=== PATIENT | female | born 1995 | race American Indian/Alaskan Native ===

== ENCOUNTER 2018-05-15 14:22 | Emergency (ER) | payer MEDICAID ==
[2018-05-15 14:43] VITALS: BP 122/78
[2018-05-15] MEDS ORDERED: PEPCID IV ONE (15:28)
[2018-05-15] MEDS ORDERED: TYLENOL PO ONE (15:28)
[2018-05-15] MEDS ORDERED: REGLAN IV ONE (15:28)
[2018-05-15] MEDS ORDERED: NACL 0.9% 1000 ML 1,000 ML IV ONE (15:28)
--- NOTE | 2018-05-15 15:30 | Emergency Department Report ---
Blank Doc - Documentation Documentation: Patient is a 23-year-old female who is approximately 9 weeks confirmed with ultrasound done approximately a week ago at [facility] who is complaining of nausea vomiting and epigastric discomfort. Patient recently was diagnosed also with a urinary tract infections and has approximately 4 pills left of Macrobid. Patient is had some lower abdominal crampiness at the time she was diagnosed with the UTI but now has epigastric discomfort. Patient states she is unable to keep anything down today and has some associated dizziness upon standing. Patient on focused physical exam does have some mild tenderness in epigastrium. Patient states she is not bleeding vaginally at this time. Patient will be moved to treatment room for IV fluids. We'll also check a urinalysis to ensure that the UTI has resolved and the patient will be given meds for symptomatic relief
[2018-05-15 16:03] LABS: Bilirubin,Urine NEG (Negative); Blood,Urine NEG (Negative); Mucus,Urine 1+ /HPF
[2018-05-15 16:04] LABS: Color,Urine Yellow (Yellow)
--- NOTE | 2018-05-15 16:04 | Emergency Department Report ---
Vomiting/Diarrhea - HPI Chief Complaint: Abdominal Pain Stated Complaint: 2MOS /STOMACH PAIN Time Seen by Provider: 05/15/18 15:24 Duration: Today Severity: moderate Nausea/Vomiting Severity: Moderate Diarrhea Severity: None Pain Location: Generalized Pain Severity: Moderate Symptoms: No Watery Diarrhea, No Bloody diarrhea, No Fever, No Able to Tolerate Fluids, No Recent Unusual Foods, No Recent Untreated Water, No Recent use of Antibiotics, No Family w/ Similar Symptoms, No Contacts w/ Similar Symptoms, No Rash, No Hematuria, No Recent URI Symptoms Other History: This is a 23-year-old female who presents with abdominal cramping and nausea since 0700 this morning. 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 She is also complaining of epigastric discomfort. She is currently taking macrobid for a urinary tract infection and has approximately 5 pills left. Patient is A0, LMP 03/14/2018. Patient states she is unable to keep anything down today. She denies vaginal bleeding or discharge, frequency, urgency, or dysuria. ED Review of Systems ROS: Stated complaint: 2MOS /STOMACH PAIN Other details as noted in HPI Constitutional: denies: chills, fever Respiratory: denies: cough, shortness of breath, wheezing Cardiovascular: denies: chest pain, palpitations Gastrointestinal: abdominal pain (difuse abdominal cramping), nausea, vomiting. denies: diarrhea Genitourinary: denies: urgency, dysuria, discharge Musculoskeletal: denies: back pain, joint swelling, arthralgia Neurological: denies: headache, weakness, paresthesias Psychiatric: denies: anxiety, depression ED Past Medical Hx - Past Medical History Previous Medical History?: Yes Hx Asthma: Yes - Surgical History Past Surgical History?: No - Social History Smoking Status: Never Smoker Substance Use Type: None - Medications Home Medications: Home Medications Medication Instructions Recorded Confirmed Last Taken Type Acetaminophen/Codeine [Tylenol #3] 1 tab PO Q6H PRN #50 tab 05/23/13 Unknown Rx Ondansetron [Zofran Odt] 4 mg PO TID PRN #12 tab.rapdis 05/15/18 Unknown Rx Vomiting Diarrhea Exam - Exam General: Vital signs noted. No distress. Alert and acting appropriately. HEENT: Yes Moist Mucous Membranes, No Pharyngeal Erythema, No Pharyngeal Exudates, No Rhinorrhea, No Conjuctival Injection, No Frontal Tenderness, No Maxillary Tenderness Neck: No Adenopathy, No Rigidity Lungs: Yes Clear Lung Sounds, Yes Good Air Exchange, No Wheezes, No Stridor, No Cough, No Nasal Flaring, No Retractions, No Use of Accessory Muscles Heart exam: Regular: Yes, Murmur: No, Tachycardia: No Abdomen: Tenderness: Yes (epigastric), Peritoneal Signs: No, Distention: No, Hyperactive Bowel sounds: No Skin exam: Rash: No, Edema: No, Normal turgor: Yes Neurologic: Alert and oriented, no deficits. Musculoskeletal: Unremarkable. ED Course Vital Signs 05/15/18 05/15/18 14:38 15:55 Temperature 98.9 F Pulse Rate 83 Respiratory 18 18 Rate Blood Pressure 122/78 O2 Sat by Pulse 100 Oximetry ED Medical Decision Making - Lab Data Lab Results 05/15/18 Range/Units 15:53 Urine Color Yellow (Yellow) Urine Turbidity Slightly-cloudy (Clear) Urine pH 6.0 (5.0-7.0) Ur Specific [place] 1.027 (1.003-1.030) Urine Protein 30 mg/dl (Negative) mg/dL Urine Glucose (UA) Neg (Negative) mg/dL Urine Ketones Tr (Negative) mg/dL Urine Blood Neg (Negative) Urine Nitrite Neg (Negative) Urine Bilirubin Neg (Negative) Urine Urobilinogen 4.0 (<2.0) mg/dL Ur Leukocyte Esterase Neg (Negative) Urine WBC (Auto) 2.0 (0.0-6.0) /HPF Urine RBC (Auto) 1.0 (0.0-6.0) /HPF U Epithel Cells (Auto) 3.0 (0-13.0) /HPF Urine Mucus 1+ /HPF - Medical Decision Making Patient was examined by me and screened by Sona Belle. Vitals are normal and patient is in no acute distress. Obtained a urinalysis with positive ketones and 30 mg protein. Given Pepcid, Reglan, normal saline bolus, and Tylenol. Patient informed of results. Start Zofran for nausea. Patient discharged home in stable condition. Follow up with PCP in 2-3 days. Critical care attestation.: If time is entered above; I have spent that time in minutes in the direct care of this critically ill patient, excluding procedure time. 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 Prescriptions: Ondansetron [Zofran Odt] 4 mg PO TID PRN #12 tab.rapdis PRN Reason: Nausea Referrals: [facility] [Provider Group] - 3-5 Days [facility] [Provider Group] - 3-5 Days Forms: Work/School Release Form(ED) Time of Disposition: 17:06 Print Language: TUNISIAN
== END 2018-05-15 17:22 | disposition home or self-care (01) ==
LOC: ED 14:22
DX: O21.9 Vomiting of pregnancy, unspecified (principal); O26.891 Other specified pregnancy related conditions, first trimester; R10.84 Generalized abdominal pain; J45.909 Unspecified asthma, uncomplicated; Z3A.08 8 weeks gestation of pregnancy
CPT/HCPCS: 81001; 96361; 96374; 96375; 99283; J2765; J7030

== ENCOUNTER 2018-06-01 06:02 | Emergency (ER) | payer MEDICAID ==
[2018-06-01] MEDS ORDERED: ZOFRAN ONE (06:52)
[2018-06-01] MEDS ORDERED: ZOFRAN IM ONE (07:03)
[2018-06-01 07:30] LABS: Hematocrit 38.6 % (30.3-42.9); Hemoglobin 13.3 gm/dl (10.1-14.3); Mean Corpuscular HGB Conc 34 % (30-34); Mean Corpuscular Hemoglobin 29 pg (28-32); Mean Corpuscular Volume 85 fl (79-97); Platelet Count 353 K/mm3 (140-440); Red Blood Count 4.54 M/mm3 (3.65-5.03)
[2018-06-01 07:48] LABS: BUN/Creatinine Ratio 22; Blood Urea Nitrogen 13 mg/dL (7-17); Calcium 9.7 mg/dL (8.4-10.2); Hemolysis Index 2
[2018-06-01] MEDS ORDERED: NACL 0.9% 1000 ML 1,000 ML IV ONE (08:36)
[2018-06-01 08:47] LABS: Basophils % (Manual) 0 % (0.0-1.8); Eosinophils % (Manual) 0 % (0.0-4.3); Platelet Estimate Consistent w Auto; RBC Morphology Normal; Total Cells Counted 100
--- NOTE | 2018-06-01 08:57 | Emergency Department Report ---
ED HPI - General Chief complaint: Abdominal Pain Stated complaint: VOMITING,CRAMPS, 9 WKS Time Seen by Provider: 06/01/18 08:34 Source: patient Mode of arrival: Ambulatory Limitations: No Limitations - History of Present Illness Initial comments: This is a 23-year-old female nontoxic, well nourished in appearance, no acute signs of distress presents to the ED with c/o of pelvic pain and nausea with vomiting x1 week. Patient stated she is about 9 weeks . Patient denies any vaginal bleeding. Patient denies any upper abdominal pain. Patient denies any vaginal discharge or foul odor. Patient denies any nausea, vomiting, chest pain, shortness of breathe, fever, chills, headache, stiff neck, numbness, tingling. Patient denies any urinary symptoms. Patient denies any allergies or PMH. MD Complaint: other (pelvic pain with nausea and vomiting) -: week(s) (1) Location: pelvis Radiation: none Severity: mild Severity scale (0 -10): 3 Quality: cramping Consistency: intermittent Improves with: none Worsens with: none Associated symptoms: nausea/vomiting. denies: vaginal bleeding, vaginal discharge, abdominal pain, dysuria, headache, vision changes, malaise, dysparuenia, rash, seizure, shortness of breath, syncope, weakness Vaginal bleeding: none :: Yes Number of weeks : 9 Pre-luther care: none - Related Data Previous Rx's Medication Instructions Recorded Last Taken Type Acetaminophen/Codeine [Tylenol #3] 1 tab PO Q6H PRN #50 tab 05/23/13 Unknown Rx Ondansetron [Zofran Odt] 4 mg PO TID PRN #12 tab.rapdis 05/15/18 Unknown Rx Metoclopramide [Reglan] 10 mg PO Q8H PRN #30 tab 06/01/18 Unknown Rx 21/Iron Fu/Folic Acid 1 each PO DAILY #30 tablet 06/01/18 Unknown Rx [ Complete Caplet] Allergies Allergy/AdvReac Type Severity Reaction Status Date / Time No Known Allergies Allergy Verified 05/23/13 13:25 ED Review of Systems ROS: Stated complaint: VOMITING,CRAMPS, 9 WKS Other details as noted in HPI Constitutional: denies: chills, fever Eyes: denies: eye pain, eye discharge, vision change ENT: denies: ear pain, throat pain Respiratory: denies: cough, shortness of breath, wheezing Cardiovascular: denies: chest pain, palpitations Endocrine: no symptoms reported Gastrointestinal: nausea, vomiting, other (pelvic pain). denies: abdominal pain , diarrhea Genitourinary: denies: urgency, dysuria, discharge Musculoskeletal: denies: back pain, joint swelling, arthralgia Skin: denies: rash, lesions Neurological: denies: headache, weakness, paresthesias Psychiatric: denies: anxiety, depression Hematological/Lymphatic: denies: easy bleeding, easy bruising ED Past Medical Hx - Past Medical History Hx Asthma: Yes - Surgical History Past Surgical History?: No - Social History Smoking Status: Never Smoker Substance Use Type: None - Medications Home Medications: Home Medications Medication Instructions Recorded Confirmed Last Taken Type Acetaminophen/Codeine [Tylenol #3] 1 tab PO Q6H PRN #50 tab 05/23/13 Unknown Rx Ondansetron [Zofran Odt] 4 mg PO TID PRN #12 tab.rapdis 05/15/18 Unknown Rx Metoclopramide [Reglan] 10 mg PO Q8H PRN #30 tab 06/01/18 Unknown Rx 21/Iron Fu/Folic Acid 1 each PO DAILY #30 tablet 06/01/18 Unknown Rx [ Complete Caplet] ED Physical Exam - General Limitations: No Limitations General appearance: alert, in no apparent distress - Head Head exam: Present: atraumatic, normocephalic - Eye Eye exam: Present: normal appearance Pupils: Present: normal accommodation - ENT ENT exam: Present: normal exam, mucous membranes moist - Neck Neck exam: Present: normal inspection, full ROM. Absent: tenderness, lymphadenopathy - Respiratory Respiratory exam: Present: normal lung sounds bilaterally. Absent: respiratory distress, wheezes, rales, rhonchi, stridor, chest wall tenderness, accessory muscle use, decreased breath sounds, prolonged expiratory - Cardiovascular Cardiovascular Exam: Present: regular rate, normal rhythm, normal heart sounds. Absent: bradycardia, tachycardia, irregular rhythm, systolic murmur, diastolic murmur, rubs, gallop - GI/Abdominal GI/Abdominal exam: Present: soft, normal bowel sounds. Absent: distended, tenderness, guarding, rebound, rigid, diminished bowel sounds, hyperactive bowel sounds, hypoactive bowel sounds, mass, pulsatile mass - Expanded GI/Abdominal Exam Expanded GI/Abdominal exam: Absent: psoas sign, Barrow's sign, Rovsing's sign, tenderness at Mcburney's Point, ascites - Rectal Rectal exam: Present: deferred - Extremities Exam Extremities exam: Present: normal inspection, full ROM, normal capillary refill. Absent: tenderness - Back Exam Back exam: Present: normal inspection, full ROM. Absent: tenderness, CVA tenderness (R), CVA tenderness (L), muscle spasm, paraspinal tenderness, vertebral tenderness, rash noted - Neurological Exam Neurological exam: Present: alert, oriented X3, normal gait - Psychiatric Psychiatric exam: Present: normal affect, normal mood - Skin Skin exam: Present: warm, dry, intact, normal color. Absent: rash ED Course Vital Signs 06/01/18 06/01/18 06/01/18 06:57 08:29 08:32 Temperature 98.3 F 98.5 F Pulse Rate 80 80 Respiratory 18 20 17 Rate Blood Pressure 111/62 Blood Pressure 102/58 [Left] O2 Sat by Pulse 100 100 Oximetry 06/01/18 10:10 Temperature 98.8 F Pulse Rate 70 Respiratory 18 Rate Blood Pressure Blood Pressure 114/84 [Left] O2 Sat by Pulse 100 Oximetry - Reevaluation(s) Reevaluation #1: 06/01/18 09:38 Patient is speaking in full sentences with no signs of distress noted. ED Medical Decision Making - Lab Data Result diagrams: 06/01/18 07:08 06/01/18 07:08 - Medical Decision Making This is a 23-year-old female that presents with hyperemesis gravidarum and pregnnacy pelvic cramping. Patient is stable and was examined by me. There is slight abdominal tenderness. Negative signs of symptoms of appendicitis. Labs obtained. UA obtained. US of abdomen obtained and dictated by the radiologist. Patient is notified of the report with no questions noted by the patient. Vital signs are stable prior to discharge. PAtient received 1 L normal saline and Zofran in the ED which patient stated symptoms has resolved and subsided. A by mouth challenge has been obtained and patient tolerated well with no nausea vomiting. Patient was notified of strict precautions of appendicitis symptoms and to return to the ED if symptoms occurs as soon as possible. Patient was also instructed to Follow-up with a primary care doctor in 3-5 days or if symptoms worsen and continue return to emergency room as soon as possible. At time of discharge, the patient does not seem toxic or ill in appearance. No acute signs of distress noted. Patient agrees to discharge treatment plan of care. No further questions noted by the patient. Critical care attestation.: If time is entered above; I have spent that time in minutes in the direct care of this critically ill patient, excluding procedure time. ED Disposition Clinical Impression: Hyperemesis gravidarum Pelvic pain affecting Qualifiers: Trimester: first trimester Qualified Code(s): O26.891 - Other specified related conditions, first trimester; R10.2 - Pelvic and perineal pain Disposition: TO HOME OR SELFCARE Is pt being admited?: No Does the pt Need Aspirin: No Condition: Stable Instructions: Abdominal Pain (ED), Hyperemesis Gravidarum (ED) Additional Instructions: Follow-up with a primary care/OBGYN doctor in 3-5 days or if symptoms worsen and continue return to emergency room as soon as possible. Prescriptions: Metoclopramide [Reglan] 10 mg PO Q8H PRN #30 tab PRN Reason: Nausea 21/Iron Fu/Folic Acid [ Complete Caplet] 1 each PO DAILY #30 tablet Referrals: PRIMARY CAREMD [Primary Care Provider] - 3-5 Days CHRIS DAMON MD [Staff Physician] - 3-5 Days [facility] [Provider Group] - 3-5 Days Forms: Work/School Release Form(ED)
--- NOTE | 2018-06-01 11:15 | Ultrasound Report ---
FINAL REPORT EXAM: US OB < = 14 WEEKS FETUS HISTORY: pelvic pain TECHNIQUE: Grayscale and color doppler ultrasound of the fetus was performed transabdominally. PRIORS: None. FINDINGS: A single, live intrauterine fetus is present in variable presentation with a heart rate of 166 beats per minute. The placenta is grade 0 and posterior and position. No evidence of subchorionic hemorrhage. The yolk sac was seen. Why-rump length is 5.9 centimeters corresponding with an estimated gestational age of 12 weeks and 3 days. The maternal uterus measures 11.7 x 7.4 x 8.0 centimeters. The maternal right ovary measures 2.7 x 1.3 x 1.3 centimeters and is normal in echogenicity without cyst or mass. The left ovary measures 3.8 x 2.5 x 2.3 centimeters with several simple cysts. The largest measures 2.1 centimeters. Normal color flow is seen to the ovaries. Biparietal diameter: 12 weeks and 3 days. Head circumference: Not performed. Abdominal circumference: Not performed. Femur length: 12 weeks and 1 day. Estimated gestational age based on ultrasound criteria is 12 weeks and 2 days with an LATONIA of 12/12/2018. IMPRESSION: Live intrauterine fetus measuring at 12 weeks and 2 days gestational age with an LATONIA of 12/12/2018.
[2018-06-01 11:23] LABS: Bilirubin,Urine NEG (Negative); Blood,Urine NEG (Negative); Color,Urine Yellow (Yellow); Mucus,Urine 2+ /HPF
[2018-06-01 12:26] VITALS: BP 108/76
== END 2018-06-01 12:26 | disposition home or self-care (01) ==
LOC: ED 06:02
DX: O21.0 Mild hyperemesis gravidarum (principal); Z3A.09 9 weeks gestation of pregnancy
CPT/HCPCS: 36415; 76801; 80048; 81001; 84702; 85007; 85025; 96360; 96372; 99284; J2405; J7030

== ENCOUNTER 2018-10-01 10:42 | Emergency (ER) | payer MEDICAID ==
[2018-10-01 11:16] VITALS: BP 111/63
--- NOTE | 2018-10-01 13:01 | Emergency Department Report ---
- General Chief Complaint: Earache Stated Complaint: COLD/ EAR INFECTION Time Seen by Provider: 10/01/18 12:52 Source: patient Mode of arrival: Ambulatory Limitations: No Limitations - History of Present Illness Initial Comments: This is a 23-year-old female nontoxic, well nourished in appearance, no acute signs of distress presents to the ED with c/o of earache, sore throat, rhi norrhea, and nasal congestion x2 days. Patient denies any cough. Patient denies any sick contact. Patient denies any recent travels, long car, recent hospital stays. Patient denies any calf pain or calf tenderness. Patient denies any chest pain, short of breath, fever, chills, nausea, vomiting, hemoptysis, numbness, tingling, headache or stiff neck. Patient denies any allergies or PMH. MD Complaint: sore throat, rhinorrhea, nasal congestion, other (bilateral earache) -: days(s) (2) Severity: mild Consistency: constant Improves With: nothing Worsens With: nothing Associated Symptoms: nasal congestion, sore throat, cough, ear pain. denies: fever, chills, myalgias, diaphoresis, headache, rhinorrhea, stiff neck, chest pain, shortness of breath, abdominal pain, nausea, vomiting, diarrhea, dysuria, rash, confusion, right sweats, weight loss, epistaxis, hoarseness Treatments Prior to Arrival: none - Related Data Previous Rx's Medication Instructions Recorded Last Taken Type Acetaminophen/Codeine [Tylenol #3] 1 tab PO Q6H PRN #50 tab 05/23/13 Unknown Rx Ondansetron [Zofran Odt] 4 mg PO TID PRN #12 tab.rapdis 05/15/18 Unknown Rx Metoclopramide [Reglan] 10 mg PO Q8H PRN #30 tab 06/01/18 Unknown Rx 21/Iron Fu/Folic Acid 1 each PO DAILY #30 tablet 06/01/18 Unknown Rx [ Complete Caplet] Amoxicillin [Amoxicillin TAB] 875 mg PO BID #20 tablet 10/01/18 Unknown Rx Ibuprofen [Motrin] 600 mg PO Q8H PRN #20 tablet 10/01/18 Unknown Rx Allergies Allergy/AdvReac Type Severity Reaction Status Date / Time No Known Allergies Allergy Verified 10/12/13 13:25 ED Review of Systems ROS: Stated complaint: COLD/ EAR INFECTION Other details as noted in HPI Constitutional: denies: chills, fever Eyes: denies: eye pain, eye discharge, vision change ENT: ear pain, congestion. denies: throat pain Respiratory: denies: cough, shortness of breath, wheezing Cardiovascular: denies: chest pain, palpitations Endocrine: no symptoms reported Gastrointestinal: denies: abdominal pain, nausea, diarrhea Genitourinary: denies: urgency, dysuria, discharge Musculoskeletal: denies: back pain, joint swelling, arthralgia Skin: denies: rash, lesions Neurological: denies: headache, weakness, paresthesias Psychiatric: denies: anxiety, depression Hematological/Lymphatic: denies: easy bleeding, easy bruising ED Past Medical Hx - Past Medical History Previous Medical History?: Yes Hx Asthma: Yes - Surgical History Past Surgical History?: No - Social History Smoking Status: Never Smoker Substance Use Type: None - Medications Home Medications: Home Medications Medication Instructions Recorded Confirmed Last Taken Type Acetaminophen/Codeine [Tylenol #3] 1 tab PO Q6H PRN #50 tab 05/23/13 Unknown Rx Ondansetron [Zofran Odt] 4 mg PO TID PRN #12 tab.rapdis 05/15/18 Unknown Rx Metoclopramide [Reglan] 10 mg PO Q8H PRN #30 tab 06/01/18 Unknown Rx 21/Iron Fu/Folic Acid 1 each PO DAILY #30 tablet 06/01/18 Unknown Rx [ Complete Caplet] Amoxicillin [Amoxicillin TAB] 875 mg PO BID #20 tablet 10/01/18 Unknown Rx Ibuprofen [Motrin] 600 mg PO Q8H PRN #20 tablet 10/01/18 Unknown Rx ED Physical Exam - General Limitations: No Limitations General appearance: alert, in no apparent distress - Head Head exam: Present: atraumatic, normocephalic - Eye Eye exam: Present: normal appearance - Expanded ENT Exam Expanded Ear exam: Present: normal external inspection TM/Canal exam: Erythema: Left TM, Bulging: Left TM Mouth exam: Present: normal external inspection Teeth exam: Present: normal inspection Throat exam: Positive: tonsillar erythema, other (uvula midline). Negative: tonsillomegaly, tonsillar exudate, R peritonsillar mass, L peritonsillar mass - Neck Neck exam: Present: normal inspection, full ROM. Absent: tenderness, meningismus, lymphadenopathy - Respiratory Respiratory exam: Present: normal lung sounds bilaterally. Absent: respiratory distress, wheezes, rales, rhonchi, stridor, chest wall tenderness, accessory muscle use, decreased breath sounds, prolonged expiratory - Cardiovascular Cardiovascular Exam: Present: regular rate, normal rhythm, normal heart sounds. Absent: systolic murmur, diastolic murmur, rubs, gallop - Extremities Exam Extremities exam: Present: normal inspection, full ROM - Back Exam Back exam: Present: normal inspection, full ROM - Neurological Exam Neurological exam: Present: alert, oriented X3 - Psychiatric Psychiatric exam: Present: normal affect, normal mood - Skin Skin exam: Present: warm, dry, intact, normal color. Absent: rash - Other Other exam information: Negative mastoid or tragus tenderness ED Course Vital Signs 10/01/18 11:14 Temperature 98.3 F Pulse Rate 100 H Respiratory 16 Rate Blood Pressure 111/63 O2 Sat by Pulse 100 Oximetry - Reevaluation(s) Reevaluation #1: 10/01/18 12:59 Patient is speaking in full sentences with no signs of distress noted. Critical care attestation.: If time is entered above; I have spent that time in minutes in the direct care of this critically ill patient, excluding procedure time. ED Disposition Clinical Impression: Left otitis media Qualifiers: Otitis media type: unspecified Qualified Code(s): H66.92 - Otitis media, unspe cified, left ear Pharyngitis Qualifiers: Pharyngitis/tonsillitis etiology: unspecified etiology Qualified Code(s): J02.9 - Acute pharyngitis, unspecified Disposition: DC-01 TO HOME OR SELFCARE Is pt being admited?: No Does the pt Need Aspirin: No Condition: Stable Instructions: Otitis Media (ED), Pharyngitis (ED) Additional Instructions: Follow-up with a primary care doctor in 3-5 days or if symptoms worsen and continue return to emergency room as soon as possible. Prescriptions: Amoxicillin [Amoxicillin TAB] 875 mg PO BID #20 tablet Ibuprofen [Motrin] 600 mg PO Q8H PRN #20 tablet PRN Reason: Pain Referrals: PHAM PEÑA [Primary Care Provider] - 3-5 Days [facility]IMARY [facility], [Referring] - 3-5 Days CHRISTINA SOLIS MD [Staff Physician] - 3-5 Days [facility] [Outside] - 3-5 Days Forms: Work/School Release Form(ED)
== END 2018-10-01 13:08 | disposition home or self-care (01) ==
LOC: ED 10:42
DX: H66.92 Otitis media, unspecified, left ear (principal); J02.9 Acute pharyngitis, unspecified; J45.909 Unspecified asthma, uncomplicated
CPT/HCPCS: 99282

== ENCOUNTER 2018-12-12 19:59 | Inpatient (IN) | payer MEDICAID ==
[2018-12-12 21:04] LABS: Hematocrit 36.9 % (30.3-42.9); Hemoglobin 12.4 gm/dl (10.1-14.3); Mean Corpuscular HGB Conc 33 % (30-34); Mean Corpuscular Volume 88 fl (79-97); Platelet Count 196 K/mm3 (140-440); Red Cell Distribution Width 13.1 % (13.2-15.2)
[2018-12-12 21:08] LABS: Bacteria,Urine 1+ /HPF (Negative); Bilirubin,Urine NEG (Negative); Blood,Urine NEG (Negative); Color,Urine Yellow (Yellow); Mucus,Urine 3+ /HPF; Urobilinogen,Urine < 2.0 mg/dL (<2.0)
[2018-12-12 21:24] LABS: Alanine Aminotransferase 37 units/L (7-56)
[2018-12-12] MEDS ORDERED: XYLOCAINE 2% INFILTRATI ONE (21:45)
[2018-12-12] MEDS ORDERED: STADOL IV PRN (21:45)
[2018-12-12] MEDS ORDERED: MINERAL OIL PO PRN (21:45)
[2018-12-12] MEDS ORDERED: BRETHINE IVP PRN (21:45)
[2018-12-12] MEDS ORDERED: BRETHINE SUB-Q PRN (21:45)
[2018-12-12] MEDS ORDERED: APRESOLINE IV PRN (21:49)
--- NOTE | 2018-12-12 21:49 | History and Physical Report ---
History of Present Illness Date of examination: 12/12/18 Date of admission: 12/12/2018 Chief complaint: Contractions History of present illness: 23-year-old at 39+5 weeks who presents to labor and delivery triage with complaint of irregular uterine contractions. Upon evaluation patient was found to have elevated blood pressures of 167/95. Serial blood pressures were performed at continued to remain elevated. The patient will is 2 cm at presentation and denies leakage of fluid. GBS negative. Past History Past Medical History: asthma Past Surgical History: no surgical history Social history: single - Obstetrical History Expected Date of Delivery: 12/14/18 Actual Gestation: 39 Week(s) 5 Day(s) : 1 Para: 0 Hx # Term Pregnancies: 0 Number of Pregnancies: 0 Spontaneous Abortions: 0 Induced : 0 Number of Living Children: 0 Medications and Allergies Allergies Allergy/AdvReac Type Severity Reaction Status Date / Time No Known Allergies Allergy Verified 05/23/13 13:25 Home Medications Medication Instructions Recorded Confirmed Last Taken Type No Known Home Medications [No 12/12/18 12/12/18 Unknown History Reported Home Medications] Review of Systems All systems: negative Genitourinary: contractions, no leakage of fluid - Vital Signs Vital signs: Vital Signs Pulse BP 60 167/95 12/12/18 20:20 12/12/18 20:20 Temp Pulse Resp BP Pulse Ox 98.1 F 65 18 147/82 12/12/18 20:22 12/12/18 21:38 12/12/18 20:22 12/12/18 21:38 - Physical Exam Breasts: Positive: deferred Cardiovascular: Regular rate Lungs: Positive: Clear to auscultation Results Result Diagrams: 12/12/18 20:51 12/12/18 20:51 Abnormal lab results 12/12/18 12/12/18 12/12/18 Range/Units 20:51 20:51 20:51 RDW 13.1 L (13.2-15.2) % Creatinine 0.6 L (0.7-1.2) mg/dL Uric Acid 3.2 L (3.5-7.6) mg/dL Lactate Dehydrogenase 258 H (91-180) units/L All other labs normal. Assessment and Plan - Patient Problems (1) induced hypertension Current Visit: Yes Status: Acute Plan to address problem: Admit to labor and delivery for Pitocin augmentation Monitor blood pressures closely (2) Term Current Visit: Yes Status: Acute
[2018-12-12] MEDS ORDERED: PITOCin/NS 20 UNIT/1000ML DRIP 20 UNITS/1,000 ML BAG IV SCH (22:00)
[2018-12-12] MEDS ORDERED: PITOCin/NS 30 UNIT/500ML 30 UNITS/500 ML BAG IV SCH (22:00)
[2018-12-13] MEDS: LACTATED RINGERS 1,000 ML IV SCH ×3 (07:20→15:07)
[2018-12-13] MEDS ORDERED: ZOFRAN IV NR (15:00)
[2018-12-13] MEDS ORDERED: NARCAN 2 MG/2 ML IV PRN (15:16)
--- NOTE | 2018-12-13 15:22 | Anesthesia Consultation ---
Anesthesia Consult and Med Hx Date of service: 12/13/18 - Airway Anesthetic Teeth Evaluation: Good, Partials ROM Head & Neck: Adequate Mental/Hyoid Distance: Adequate Mallampati Class: Class II Intubation Access Assessment: Probably Good - Pulmonary Exam CTA: Yes - Cardiac Exam Cardiac Exam: RRR - Pre-Operative Health Status ASA Pre-Surgery Classification: ASA2 Proposed Anesthetic Plan: Epidural - Pulmonary Hx Smoking: No Hx Asthma: Yes (last used 2 weeks ago) Hx Respiratory Symptoms: No SOB: No COPD: No Home Oxygen Therapy: No Hx Pneumonia: No Hx Sleep Apnea: No - Cardiovascular System Hx Hypertension: Yes (this admission ) Hx Coronary Artery Disease: No Hx Heart Attack/AMI: No Hx Angina: No Hx Percutaneous Transluminal Coronary Angioplasty (PTCA): No Hx Cardia Arrhythmia: No Hx Pacemaker: No Hx Internal Defibrillator: No Hx Valvular Heart Disease: No Hx Heart Murmur: No Hx Peripheral Vascular Disease: No - Central Nervous System Hx Neuromuscular Disorder: No Hx Seizures: No CVA: No Hx Back Pain: No Hx Psychiatric Problems: No - Gastrointestinal Hx Ulcer: No Hx Gastroesophageal Reflux Disease: No - Endocrine Hx Renal Disease: No Hx End Stage Renal Disease: No Hx Cirrhosis: No Hx Liver Disease: No Hx Insulin Dependent Diabetes: No Hx Non-Insulin Dependent Diabetes: No Hx Thyroid Disease: No Hx Hypothyroidism: No Hx Hyperthyroidism: No - Hematic Hx Anemia: No Hx Sickle Cell Disease: No - Other Systems Hx Alcohol Use: No Hx Substance Use: No Hx Cancer: No Hx Obesity: No
[2018-12-13] MEDS ORDERED: fentaNYL-BUPIV 2 MCG/ML-0.125% 200 MCG/100 ML BAG EPIDURAL SCH (16:00)
--- NOTE | 2018-12-13 16:23 | Anesthesia Day of Surgery ---
Anesthesia Day of Surgery - Day of Surgery Patient Examined: Yes Patient H&P Reviewed: Yes Patient is NPO: Yes Beta Blockers: No Cardiac Clearance: No Pulmonary Clearance: No Dougie's Test: N/A
--- NOTE | 2018-12-13 16:24 | Post Anesthesia Evaluation ---
- Post Anesthesia Evaluation Patient Participated: Yes Airway Patent: Yes Stable Respiratory Function: Yes Nausea/Vomiting: No Temp > 96.8F: Yes Pain Manageable: Yes Adequeate Hydration: Yes Anesthesia Complications: No Block Receding Appropriately: Yes Patient on Ventilator: No
[2018-12-13] MEDS ORDERED: CYTOTEC PR ONE (20:45)
[2018-12-13] MEDS ORDERED: CYTOTEC ONE (20:49)
--- NOTE | 2018-12-13 21:41 | Procedure Note ---
OB Delivery Note - Delivery Date of Delivery: 12/13/18 Surgeon: REIM BILLINGSLEY Estimated blood loss: other (350 cc) - Vaginal Delivery presentation: vertex Delivery position: OA Intrapartum events: shoulder dystocia Delivery monitor: external FHT, external uterine Route of delivery: Delivery placenta: spontaneous Delivery cord: 3 umbilical vessels Episiotomy: none Delivery laceration: none Anesthesia: epidural Delivery comments: Called to supervisor curing room for delivery as MD was en route to hospital. Spontaneous vaginal delivery at 20:40 of liveborn female weighing 6 lb. 13 oz. over intact perineum with apgars of 8/9. Mild shoulder dystocia resolved with Hetal and rotation of shoulders to oblique. Baby placed immediately skin to skin on mom's abdomen after . Spontaneous cry and respirations. Baby bulb suctioned and dried. 3 vessel cord double clamped and cut after cessation of pulsation. Spontaneous delivery of intact placenta and membranes by roberto vivas. EBL 350 cc. Pitocin to IV fluids after delivery of placenta. Cytotec 800 micrograms given rectally and bleeding controlled. Fundus firm and midline. Vaginal sweep negative. No lacerations noted. Sponge count correct. Mother and baby stable in birthing room.
[2018-12-14] MEDS ORDERED: BENADRYL PO PRN (01:42)
[2018-12-14] MEDS ORDERED: PHENERGAN PO PRN (01:42)
[2018-12-14] MEDS ORDERED: TUCKS PAD TP PRN (01:42)
[2018-12-14] MEDS ORDERED: PHENERGAN PR PRN (01:42)
[2018-12-14] MEDS ORDERED: SODIUM CHLORIDE FLUSH SYRINGE 10 ML IV NR (01:42)
[2018-12-14] MEDS ORDERED: TYLENOL PO PRN (01:42)
[2018-12-14] MEDS ORDERED: MILK OF MAGNESIA PO PRN (01:42)
[2018-12-14] MEDS ORDERED: NORCO 5/325 PO PRN (01:42)
[2018-12-14] MEDS ORDERED: LANSINOH TP PRN (01:42)
[2018-12-14] MEDS ORDERED: DULCOLAX PR PRN (01:42)
[2018-12-14] MEDS ORDERED: ZOFRAN IV PRN (01:42)
[2018-12-14] MEDS: IBUPROFEN PO SCH ×5 (02:19→22:07)
[2018-12-14] MEDS: ANCEF/NS 1 GM/50 ML 1 GM/50 ML BAG IV SCH ×3 (05:57→22:07)
[2018-12-14 10:02] LABS: Hematocrit 31.6 % (30.3-42.9); Hemoglobin 10.5 gm/dl (10.1-14.3)
[2018-12-14] MEDS: COLACE PO SCH ×2 (15:03→22:08)
--- NOTE | 2018-12-14 15:22 | Progress Note ---
Assessment and Plan PPD 1 s/p . Doing well. Continue routine care. Plan for discharge Subjective - Subjective Date of service: 12/14/18 Patient reports: appetite normal, voiding normally, pain well controlled, ambulating normally [place]: doing well Objective - Vital Signs Latest vital signs: Vital Signs Temp Pulse Resp BP Pulse Ox 12/14/18 11:26 98.2 F 74 20 123/82 99 12/14/18 07:25 98.0 F 61 20 140/85 100 12/14/18 04:57 99.9 F H 18 12/14/18 04:36 76 126/78 100 12/14/18 03:10 99.5 F 12/14/18 01:17 101.3 F H 85 20 128/78 100 12/13/18 23:44 96 H 140/77 12/13/18 23:29 75 143/68 12/13/18 23:14 82 134/66 12/13/18 23:00 75 151/76 12/13/18 22:44 75 135/72 12/13/18 22:30 67 138/65 12/13/18 22:15 86 149/81 12/13/18 22:00 86 140/78 12/13/18 21:30 54 L 129/64 12/13/18 21:15 94 H 136/63 12/13/18 21:05 86 145/65 12/13/18 20:48 122 H 196/91 12/13/18 20:47 88 12/13/18 20:45 137 H 173/126 12/13/18 20:40 93 12/13/18 20:35 74 82 L 12/13/18 20:34 85 97 12/13/18 20:29 82 97 12/13/18 20:24 79 97 12/13/18 20:19 73 97 12/13/18 20:14 73 97 12/13/18 20:09 71 96 12/13/18 20:04 60 96 12/13/18 19:59 59 L 96 12/13/18 19:56 68 136/83 12/13/18 19:54 66 96 12/13/18 19:49 61 96 12/13/18 19:44 62 96 12/13/18 19:39 60 96 12/13/18 19:34 56 L 96 12/13/18 19:29 58 L 96 12/13/18 19:25 60 137/72 12/13/18 19:24 63 96 12/13/18 19:19 63 96 12/13/18 19:14 57 L 96 12/13/18 19:09 58 L 96 12/13/18 19:04 57 L 96 12/13/18 18:59 59 L 97 12/13/18 18:57 64 142/90 12/13/18 18:54 65 96 12/13/18 18:49 59 L 96 12/13/18 18:44 58 L 96 12/13/18 18:39 60 97 12/13/18 18:34 61 97 12/13/18 18:29 65 96 12/13/18 18:27 59 L 147/89 12/13/18 18:24 58 L 96 12/13/18 18:19 59 L 96 12/13/18 18:14 57 L 96 12/13/18 18:09 58 L 96 12/13/18 18:04 55 L 96 12/13/18 17:59 59 L 97 12/13/18 17:55 55 L 144/86 12/13/18 17:54 55 L 96 12/13/18 17:49 57 L 96 12/13/18 17:44 54 L 96 12/13/18 17:39 56 L 97 12/13/18 17:38 55 L 124/78 12/13/18 17:34 56 L 96 12/13/18 17:29 55 L 97 12/13/18 17:24 55 L 137/81 96 12/13/18 17:19 52 L 96 12/13/18 17:14 52 L 96 12/13/18 17:09 57 L 132/83 96 12/13/18 17:04 55 L 96 12/13/18 16:59 57 L 97 12/13/18 16:55 65 139/80 12/13/18 16:54 53 L 96 12/13/18 16:49 58 L 97 12/13/18 16:48 97.9 F 12/13/18 16:44 56 L 97 12/13/18 16:39 58 L 97 12/13/18 16:37 57 L 137/88 12/13/18 16:34 57 L 130/81 97 12/13/18 16:31 62 131/84 05/04/19 16:29 59 L 97 12/13/18 16:28 62 136/85 12/13/18 16:25 56 L 136/81 12/13/18 16:24 53 L 97 12/13/18 16:22 57 L 131/82 12/13/18 16:19 52 L 129/82 97 12/13/18 16:16 54 L 126/80 12/13/18 16:14 64 97 12/13/18 16:13 61 126/76 12/13/18 16:10 61 122/79 12/13/18 16:09 57 L 97 12/13/18 16:07 58 L 124/75 12/13/18 16:04 61 120/72 97 12/13/18 16:01 65 123/75 12/13/18 15:59 63 97 12/13/18 15:58 58 L 128/75 12/13/18 15:54 69 98 12/13/18 15:53 59 L 127/69 12/13/18 15:49 67 98 12/13/18 15:48 59 L 137/82 12/13/18 15:44 61 100 12/13/18 15:39 58 L 100 12/13/18 15:36 68 145/85 12/13/18 15:34 61 99 Intake and Output 12/14/18 12/14/18 12/14/18 06:59 14:59 22:59 Intake Total 290 240 Output Total 200 1000 Balance 90 -760 Intake: IV 50 ANCEF/NS 1 GM/50 ML 1 gm 50 In 50 ml @ 100 mls/hr IV Q8HR [facility] Rx#:[id number] Oral 240 240 Output: Urine 200 1000 Void 200 1000 Other: Total, Intake Amount 240 120 Total, Output Amount 200 500 - Exam Breasts: Present: deferred Cardiovascular: Present: Regular rate, Normal S1, Normal S2 Lungs: Present: Clear to auscultation, Normal air movement Abdomen: Present: normal appearance, soft, normal bowel sounds Vulva: both: normal Uterus: Present: normal, firm Extremities: Present: normal Deep Tendon Reflex Grade: Normal +2
[2018-12-15] MEDS: IBUPROFEN PO SCH ×4 (06:19→17:59)
--- NOTE | 2018-12-15 08:30 | Progress Note ---
Assessment and Plan A: PPD#2 s/p at term, Gestational HTN P: Routine care. Anticipate discharge tomorrow AM with follow up in 1 wk for a blood pressure check. Subjective - Subjective Date of service: 12/15/18 Principal diagnosis: PIH. s/p at term Interval history: Pt without complaints. Denies headache, blurry vision or RUQ pain today. Patient reports: appetite normal, voiding normally, ambulating normally, no nauseated [place]: doing well Objective - Vital Signs Latest vital signs: Vital Signs Temp Pulse Resp BP Pulse Ox 12/15/18 01:31 98.6 F 63 20 136/95 100 12/14/18 16:29 98.4 F 76 16 125/83 100 12/14/18 11:26 98.2 F 74 20 123/82 99 Intake and Output 12/14/18 12/15/18 12/15/18 22:59 06:59 14:59 Intake Total 320 360 Balance 320 360 Intake: IV 100 ANCEF/NS 1 GM/50 ML 1 gm 100 In 50 ml @ 100 mls/hr IV Q8HR [facility] Rx#:[id number] Oral 220 Intake, Free Water 360 Other: Total, Intake Amount 220 Voiding Method Toilet # Voids Void 1 2 - Exam Breasts: Present: deferred Cardiovascular: Present: Regular rate Lungs: Present: Clear to auscultation Abdomen: Present: soft Uterus: Present: fundal height below umbilicus Extremities: Present: edema (trace)
--- NOTE | 2018-12-15 08:31 | Discharge Summary ---
Providers - Providers Date of Admission: 12/12/18 21:58 Date of discharge: 12/16/18 Attending physician: LANDRY PETERSEN Primary care physician: LANDRY PETERSEN Hospitalization Reason for admission: induction of labor, other (gestational HTN ) Delivery: Procedure details: Please see delivery note Episiotomy: none Laceration: none Other procedures: none complications: none Discharge diagnosis: IUP at term delivered [place] baby: female Hospital course: The patient was admitted for induction of labor secondary to gestational hypertension at term. She not have a spontaneous vaginal delivery was tolerated well. The remainder of her course was uncomplicated and she met discharge criteria on postoperative day #2. She'll follow up in the office in 1 week for blood pressure check. Condition at discharge: Stable Disposition: DC-01 TO HOME OR SELFCARE - Discharge Diagnoses (1) Gestational HTN Status: Acute Qualifiers: Trimester: third trimester Qualified Code(s): O13.3 - Gestational [-induced] hypertension without significant proteinuria, third trimester (2) Term of female Status: Acute Plan - Discharge Medications Prescriptions: Ibuprofen [Motrin] 800 mg PO Q8HR PRN #30 tablet PRN Reason: Pain, Moderate (4-6) HYDROcodone/APAP 5-325 [[place] 5/325] 1 each PO Q6HR PRN #20 tablet PRN Reason: Pain - Provider Discharge Summary Activity: routine, no sex for 6 weeks, no heavy lifting 4 weeks, no strenuous exercise Diet: routine Instructions: routine Additional instructions: [] Smoking cessation referral if applicable(refer to patient education folder for contact #) [] Refer to [facility]'s [facility] Booklet Call your doctor immediately for: * Fever > 100.5 * Heavy vaginal bleeding ( >1 pad per hour) * Severe persistent headache * Shortness of breath * Reddened, hot, painful area to leg or breast * Drainage or odor from incision. * Keep incision clean and dry at all times and follow doctor's instructions regarding bathing/showering - Follow up plan Follow up: STACY BEYER MD [Staff Physician] - 7 Days
[2018-12-15] MEDS: COLACE PO SCH (09:43)
[2018-12-16] MEDS: IBUPROFEN PO SCH ×2 (01:55→12:45)
[2018-12-16] MEDS: COLACE PO SCH (10:25)
[2018-12-16 17:28] VITALS: BP 132/85
== END 2018-12-16 17:00 | disposition home or self-care (01) | DRG 775 ==
LOC: TRG 19:59 → LD 21:58 → OB 12-14 01:18
PROVIDERS: ADMIT Obstetrics & Gynecology; ATTEND Obstetrics & Gynecology
PROC: 10E0XZZ Delivery of Products of Conception, External Approach (ICD-10-PCS; principal; 2018-12-13)
PROC: 3E0R3BZ Introduction of Anesthetic Agent into Spinal Canal, Percutaneous Approach (ICD-10-PCS; 2018-12-13)
PROC: 00HU33Z Insertion of Infusion Device into Spinal Canal, Percutaneous Approach (ICD-10-PCS; 2018-12-13)
DX: O13.3 Gestational [pregnancy-induced] hypertension without significant proteinuria, third trimester (principal); Z3A.39 39 weeks gestation of pregnancy; Z37.0 Single live birth; O99.52 Diseases of the respiratory system complicating childbirth; J45.909 Unspecified asthma, uncomplicated; O66.0 Obstructed labor due to shoulder dystocia
CPT/HCPCS: 36415; 81001; 82565; 83615; 84450; 84460; 84550; 85014; 85018; 85027; 86850; 86900; 86901; G0378; A6250; J0595; J0690; J2405; J2590; J7120